=== PATIENT | female | born 1975 | race Caucasian/White ===

== ENCOUNTER 2019-12-26 19:11 | Emergency (ER) | payer MEDICARE ==
[~2019-12-26] VITALS: Ht 127 cm; Wt 49.1 kg
[2019-12-26 19:21] VITALS: TEMP 98.8
[2019-12-26] MEDS ORDERED: KLONOPIN 0.5MG0.5 MG PO (19:27)
[2019-12-26] MEDS ORDERED: MAGNESIUM ELEM300 MG PO (19:28)
[2019-12-26] MEDS ORDERED: ANTIVERT 25MG25 MG PO (19:28)
[2019-12-26] MEDS ORDERED: OSCAL 500 TAB500 MG PO (19:28)
[2019-12-26] MEDS ORDERED: FLINTSTONES1 CTB PO (19:28)
[2019-12-26 19:59] VITALS: BP 139/119; PULSE 99
[2019-12-26 21:03] LABS: CLOSTRIDIUM DIFF A/B NEG; CLOSTRIDIUM DIFF A/B INTERP No C.diff present
[2019-12-26] MEDS ORDERED: ALINIA100 MG/5 M PO (22:38)
== END 2019-12-26 20:07 | disposition home or self-care (01) ==
LOC: COL.ER 19:11
PROVIDERS: Emergency Medicine
DX: A09 Infectious gastroenteritis and colitis, unspecified (principal); Z88.0 Allergy status to penicillin; Z88.5 Allergy status to narcotic agent; Z88.6 Allergy status to analgesic agent; Z91.041 Radiographic dye allergy status

== ENCOUNTER 2020-01-29 15:48 | Emergency (ER) | payer MEDICARE ==
[~2020-01-29] VITALS: Ht 127 cm; Wt 50.0 kg
[~2020-01-29 15:48] MED LIST: ALINIA100 MG/5 M PO; ANTIVERT 25MG25 MG PO; FLINTSTONES1 CTB PO; KLONOPIN 0.5MG0.5 MG PO; MAGNESIUM ELEM300 MG PO; OSCAL 500 TAB500 MG PO
[2020-01-29 16:29] VITALS: TEMP 98.9
[2020-01-29 17:22] LABS: BASO # 0.1 (0.0-0.2); BASO % 0.4 % (0.0-2.0); EOS # 0.1 (0.0-0.7); EOS % 0.4 % (0-4.0); GRAN # 10.8 (1.4-6.5); HEMATOCRIT 38.7 % (37.0-47.0); HEMOGLOBIN 12.9 g/dl (12.5-16.0); LYMPH # 2.4 (1.2-3.4); LYMPH % 16.8 % (20.0-51.0); MEAN CELL VOLUME 89 fl (80.0-100.0); MEAN CORPUSCULAR HEMOGLOBIN 30 pg (27.0-31.0); MEAN CORPUSCULAR HGB CONC 33 g/dl (33.0-37.0); MEAN PLATELET VOLUME 10.7 fl (7.4-10.4); MONO # 0.7 (0.1-0.6); PLATELET COUNT 381 K/mm3 (130-400); RED BLOOD COUNT 4.37 M/mm3 (4.10-5.30); REDCELL DISTRIBUTION WIDTH-CV 12.5 % (11.5-14.5)
[2020-01-29 17:53] LABS: COLLECTION METHOD CLEAN CATCH
[2020-01-29 18:02] LABS: MUCOUS Present /lpf; PH 7 (5-8); SQUAMOUS EPITHELIAL 0-2 /hpf; URINE APPEARANCE Clear; URINE BACTERIA Rare /hpf; URINE BILIRUBIN Negative (NEGATIVE); URINE BLOOD 2+ (NEGATIVE); URINE COLOR Straw; URINE GLUCOSE Negative (NEGATIVE); URINE KETONE Negative (NEGATIVE); URINE LEUKOCYTE ESTERASE Negative (NEGATIVE); URINE NITRATE Negative (NEGATIVE); URINE PROTEIN(semi-quant) Negative (NEGATIVE); URINE RBC 0-2 /hpf; URINE UROBILINOGEN Negative (NEGATIVE)
[2020-01-29 19:31] LABS: ALANINE AMINOTRANSFERASE 19 U/L (4-34); ALBUMIN 4.3 gm/dL (3.5-5.0); ALKALINE PHOSPHATASE 74 U/L (50-136); ANION GAP 6 mmol/L (7-16); AST,SGOT 22 U/L (15-37); BILIRUBIN,TOTAL 0.3 mg/dL (0.0-1.0); BLOOD UREA NITROGEN 11 mg/dL (7-17); C-REACTIVE PROTEIN < 0.5 mg/dL (0.0-0.9); CALCIUM 8.8 mg/dL (8.4-10.2); CARBON DIOXIDE 24 mmol/L (22-30); CHLORIDE 107 mmol/L (98-107); CREATININE, serum 0.62 (0.52-1.25); GLUCOSE 109 mg/dL (74-106); POTASSIUM 3.8 mmol/L (3.4-5.0); SODIUM 137 mmol/L (137-145); TOTAL PROTEIN 7.6 gm/dL (6.4-8.2)
[2020-01-29] MEDS ORDERED: ATIVAN 0.50.5 MG/TAB PO (19:42)
[2020-01-29 20:01] VITALS: BP 147/90; PULSE 98
== END 2020-01-29 20:00 | disposition home or self-care (01) ==
LOC: COL.ER 15:48
PROVIDERS: Emergency Medicine
DX: R42 Dizziness and giddiness (principal); Z88.0 Allergy status to penicillin; Z88.2 Allergy status to sulfonamides; Z88.1 Allergy status to other antibiotic agents
CPT/HCPCS: J2405; J7030

== ENCOUNTER → 2021-04-28 | Outpatient (CLI) | payer MEDICARE, MEDICAID ==
[~2021-04-28] MED LIST changes: +ATIVAN 0.50.5 MG/TAB PO
== END ==
LOC: COL.RAD 04-25 13:30
DX: G91.9 Hydrocephalus, unspecified (principal); G43.009 Migraine without aura, not intractable, without status migrainosus; Z98.2 Presence of cerebrospinal fluid drainage device